=== PATIENT | male | born 1950 | race Caucasian/White ===

== ENCOUNTER → 2017-12-01 | Outpatient (CLI) | payer OTHER, MEDICARE | PROVIDERS: ATTEND Otolaryngology | DX: K22.8 Other specified diseases of esophagus (principal); K44.9 Diaphragmatic hernia without obstruction or gangrene; K21.9 Gastro-esophageal reflux disease without esophagitis | CPT/HCPCS: 74220; 74230; 92611; G8996; G8997; G8998 ==